=== PATIENT | male | born 1940 | race Caucasian/White ===

== ENCOUNTER 2017-12-04 21:43 | Inpatient (IN) | END 2017-12-20 15:16 | disposition home or self-care (01) | DRG 885 | DX: F29 Unspecified psychosis not due to a substance or known physiological condition (principal); J44.9 Chronic obstructive pulmonary disease, unspecified; I10 Essential (primary) hypertension; K59.00 Constipation, unspecified; Z87.440 Personal history of urinary (tract) infections ==